=== PATIENT | female | born 1990 | race Caucasian/White ===

== ENCOUNTER 2016-09-03 10:39 | Inpatient (IN) | payer OTHER ==
[~2016-09-03 10:39] MED LIST: ALDACTONE25 M1 PO; ALEVE220 M4 PO; DEXAMETHASONE PO; MIRENA1 EACH IL; PROAIR HFA8.5 GM INH; QVAR8.7 GM INH; SINGULAIR10 M1 PO; SYMBICORT 80-41 PUFF INH; SYNTHROID100 MC1 PO; ZANTAC 7575 M1 PO; ZYRTEC10 M7 PO
[2016-09-03 11:25] LABS: BASO % 0.3 % (0-2); EOS % 1.4 % (0-7); EOSINOPHIL ABSOLUTE COUNT 0.2 tho/cmm (0.0-0.7); IMMATURE GRANULOCYTES ABSOLUTE 0.22 tho/cmm (0-0.03); IMMATURE GRANULOCYTES PERCENT 1.5 % (0-0.3); LYMPH % 21.4 % (20-45); LYMPH ABSOLUTE COUNT 3.2 tho/cmm (0.8-4.5); MCH (MEAN CORPUSCULAR HGB) 27.8 pg (28.0-32.0); MCHC MEAN CORPUSCULAR HGB CONC 33.3 % (32.0-36.0); MCV (MEAN CELL VOLUME) 83.3 fl (82.0-96.0); MEAN PLATELET VOLUME 8.6 cmc (9.4-12.4); MONO % 8.5 % (0-12); MONOCYTE ABSOLUTE COUNT 1.3 tho/cmm (0.0-1.2); NEUTROPHIL ABSOLUTE COUNT 10.1 tho/cmm (1.6-8.0); NEUTROPHIL-AUTOMATED 10.1 tho/cmm (1.6-8.0); NEUTROPHILS % 66.9 % (40-80); PLATELET COUNT 342 tho/cmm (150-450); RED BLOOD COUNT 4.68 mil/cmm (4.00-5.20); RED CELL DISTRIBUTION WIDTH 14.7 % (12.4-16.4); WHITE BLOOD COUNT 15.1 tho/cmm (4.0-10.0)
[2016-09-04] MEDS ORDERED: NORCO 5-325 TA1 EACH PO (11:26)
[2016-09-04] MEDS ORDERED: SENOKOT-S TABL1 EACH PO (11:37)
[2016-09-04] MEDS ORDERED: BACLOFEN10 M1 PO (11:38)
== END 2016-09-04 13:41 | DRG 518 ==
LOC: SHSC 10:39 → ORE 16:12 → PACU 19:36 → 5EB 20:43
PROVIDERS: ADMIT Orthopaedic Surgery
PROC: 0RR30JZ Replacement of Cervical Vertebral Disc with Synthetic Substitute, Open Approach (ICD-10-PCS; principal; 2016-09-03)
PROC: 0RT30ZZ Resection of Cervical Vertebral Disc, Open Approach (ICD-10-PCS; 2016-09-03)
PROC: 01N10ZZ Release Cervical Nerve, Open Approach (ICD-10-PCS; 2016-09-03)
DX: M50.123 Cervical disc disorder at C6-C7 level with radiculopathy (principal); E03.9 Hypothyroidism, unspecified; J45.909 Unspecified asthma, uncomplicated
CPT/HCPCS: J0690; J1170; J2270; J2405; J3010; J7030